=== PATIENT | female | born 1990 | race Two or more races ===

== ENCOUNTER 2024-10-17 17:33 | Emergency (ER) | payer BC, OTHER ==
[~2024-10-17] VITALS: Ht 167.6 cm; Wt 93.0 kg
[2024-10-17 18:17] LABS: Hematocrit 41.6 % (36.0-46.0); Hemoglobin 14.2 g/dL (12.2-16.2); Mean Corpuscular Hemoglobin 32.8 pg (28.0-32.0); Mean Corpuscular Volume 96.4 fL (80.0-100.0); Nucleated Red Blood Cells % 0.0 %
[2024-10-17 18:29] LABS: Alanine Aminotransferase 12 U/L (7-40); Albumin 4.4 g/dL (3.2-4.8); Alkaline Phosphatase 74 U/L (46-116); Anion Gap 10 (5-15); BUN/Creatinine Ratio 14.0 (10.0-20.0); Calcium 8.9 mg/dL (8.7-10.4); Carbon Dioxide 24 mmol/L (20-31); Potassium 4.0 mmol/L (3.5-5.1); Sodium 141 mmol/L (136-145); Total Protein 7.0 g/dL (5.7-8.2)
[2024-10-17 18:30] LABS: Bilirubin, Total 0.2 mg/dL (0.2-1.0); Blood Urea Nitrogen 8 mg/dL (9-23); Chloride 107 mmol/L (98-107); Glucose 107 mg/dL (74-106)
--- NOTE | 2024-10-17 18:35 | DVH ---
CLINICAL HISTORY: vag bleed, 12 wks TECHNIQUE: Ultrasound examination of the female pelvis was performed. COMPARISON: US OB LIMITED on DOS: 09/20/22, US OB BIOPHYSICAL PROFILE W/O N-STR on DOS: 09/20/22, U S OB BIOPHYSICAL PROFILE W/O N-STR on DOS: 09/06/22, US OB BIOPHYSICAL PROFILE W/O N-STR o n DOS: 09/04/22, US OB LIMITED on DOS: 09/04/22 FINDINGS: The uterus measures 14.0 X 9.8 X 5.6 CM. The myometrial echotexture is homogenous. No focal myometri al abnormality is seen. There is a single live intrauterine with a chromium length of 3.9 cm, which correlates to g estational age of 10 weeks 6 days. The heart rate is 172 beats per minute. There is a 3.1 cm soares bchorionic bleed. The ovaries are not seen. There is no free fluid. IMPRESSION: Single live intrauterine dated at 10 weeks 6 days by current ultrasound biometry. 3.1 cm subchorionic bleed.
--- NOTE | 2024-10-17 19:06 | ED.PDOC ---
PASTE UP ARTIST HPI Comments 34 year old female presents to the ED with a chief complaint of vaginal bleeding onset today. Patient states she is about 12 weeks . Woke up this morning experiencing bright red, vaginal bleeding, soaked up about 2 pads. She is also experiencing cramping sensation. Denies any PMHx as well as vaginal discharge, dysuria, nausea, vomiting, diarrhea, headache, dizziness, fever, chills. No other symptoms or modifying factors present at this time. Chief Complaint: Vaginal Bleed Time Seen by MD: 18:50 Reviewed Notes: Medications, Allergies Allergies: Coded Allergies: NO KNOWN ALLERGIES (Unverified , 10/17/24) Information Source: Patient Mode of Arrival: Ambulatory Timing: Hours Prehospital treatment: None Severity: Moderate Vaginal Discharge: None Bleeding Quality: Bright Red Vaginal Mass: None Onset Of Mass/Bleeding: Spontaneous Sexual Activity: Last Consensual [place]: Unknown Control: None History of: Current Symptoms of Possible : Missed Period Associated Signs and Symptoms: Vaginal Bleeding, Cramping Past Medical History PAST MEDICAL HISTORY: Denies Surgical History: Denies all surgeries ARMAMENT INSTALLER History: 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 History Family History Family History: Reviewed,noncontributory to illness, No family hx of Cancer, No family hx of DM, No family hx of Heart nga, No family hx of HTN, No family hx ofKidney nga, No family hx of Liver nga, No family hx of Lung nga, No family hx of Stroke Social History Smoker: Non-Smoker Alcohol: Denies ETOH Use Drugs: Denies Drug Use Lives In: Home Constitutional: denies: chills, diaphoresis, fatigue, fever, malaise, sweats, weakness, others EENTM: denies: blurred vision, double vision, ear bleeding, ear discharge, ear drainage, ear pain, ear ringing, eye pain, eye redness, hearing loss, mouth pain, mouth swelling, nasal discharge, nose bleeding, nose congestion, nose pain, photophobia, tearing, throat pain, throat swelling, voice changes, others Respiratory: denies: cough, hemoptysis, orthopnea, SOB at rest, shortness of breath, SOB with excertion, stridor, wheezing, others Cardiovascular: denies: chest pain, dizzy spells, diaphoresis, Dyspnea on exertion, edema, irregular heart beat, left arm pain, lightheadedness, palpitations, PND, syncope, others Gastrointestinal: reports: abdominal pain; denies: abdomen distended, blood streaked bowels, constipated, diarrhea, dysphagia, difficulty swallowing, hematemesis, melena, nausea, poor appetite, poor fluid intake, rectal bleeding, rectal pain, vomiting, others Genitourinary: reports: abnormal vagina bleeding, vagina discharge; denies: burning, dyspareunia, dysuria, flank pain, frequency, hematuria, incontinence, pain, , urgency, others Neurological: denies: dizziness, fainting, headache, left sided numbness, left sided weakness, numbness, paresthesia, pre-existing deficit, right sided numbness, right sided weakness, seizure, speech problems, tingling, tremors, weakness, others Musculoskeletal: denies: back pain, gout, joint pain, joint swelling, muscle pain, muscle stiffness, neck pain, others Integumetry: denies: bruises, change in color, change in hair/nails, dryness, laceration, lesions, lumps, rash, wounds, others Allergic/Immunocompromised: denies: Difficulty Healing, Frequent Infections, Hives, Itching, others Hematologic/Lymphatic: denies: anemia, blood clots, easy bleeding, easy bruising, swollen glands, others Endocrine: denies: excessive hunger, excessive sweating, excessive thirst, excessive urination, flushing, intolerance to cold, intolerance to heat, unexplained weight gain, unexplained weight loss, others Psychiatric: denies: anxiety, bipolar disorder, depression, hopeless, panic disorder, schizophrenia, sleepless, suicidal, others All Other Systems: Reviewed and Negative Physical Exam General Appearance: Normal HEENT: Normal ENT Inspection, Pharynx Normal, TMs Normal Neck: Full Range of Motion, Non-Tender, Normal, Normal Inspection Respiratory: Chest Non-Tender, Lungs Clear, No Accessory Muscle Use, No Respiratory Distress, Normal Breath Sounds Cardiovascular: No Edema, No JVD, No Murmur, No Gallop, Normal Peripheral Pulses, Regular Rate/Rhythm Breast Exam: Deferred Gastrointestinal: No Organomegaly, Non Tender, No Pulsatile Mass, Normal Bowel Sounds, Soft Genitalia: Deferred Pelvic: Deferred Rectal: Deferred Extremities: No calf tenderness, Normal capillary refill, Normal inspection, Normal range of motion, Non-tender, No pedal edema Musculoskeletal : Apperance: Normal Neurologic: Alert, service superintendent II-XII nml as Tested, No Motor Deficits, Normal Affect, Normal Mood, No Sensory Deficits Cerebellar Function: Normal Reflexes: Normal Skin: Dry, Normal Color, Warm Lymphatic: No Adenopathy Was a procedure done? Was a procedure done?: No X-Ray, Labs, Meds, VS Vital Signs Date Time Temp Pulse Resp B/P (MAP) Pulse Ox O2 Delivery O2 Flow Rate FiO2 10/17/24 19:16 76 20 98 Room Air 10/17/24 19:16 98.0 76 20 126/74 (91) 98 98.0 10/17/24 17:36 98.1 88 18 138/77 100 98.1 Lab Test 10/17/24 18:00 Range/Units White Blood Count 6.8 4.4-10.8 10^3/uL Red Blood Count 4.31 4.0-5.20 10^6/uL Hemoglobin 14.2 12.2-16.2 g/dL Hematocrit 41.6 36.0-46.0 % Mean Corpuscular Volume 96.4 80.0-100.0 fL Mean Corpuscular Hemoglobin 32.8 H 28.0-32.0 pg Mean Corpuscular Hemoglobin Concent 34.1 32.0-36.0 g/dL Red Cell Distribution Width 12.8 11.8-14.3 % Platelet Count 288 140-450 10^3/uL Mean Platelet Volume 8.1 6.9-10.8 fL Neutrophils (%) (Auto) 66.8 37.0-80.0 % Lymphocytes (%) (Auto) 26.1 10.0-50.0 % Monocytes (%) (Auto) 6.2 0.0-12.0 % Eosinophils (%) (Auto) 0.6 0.0-7.0 % Basophils (%) (Auto) 0.3 0.0-2.0 % Neutrophils # (Auto) 4.5 1.6-8.6 10 ^3/uL Lymphocytes # (Auto) 1.8 0.4-5.4 10 ^3/uL Monocytes # (Auto) 0.4 0-1.3 10 ^3/uL Eosinophils # (Auto) 0 0-0.8 10 ^3/uL Basophils # (Auto) 0 0-0.2 10 ^3/uL Nucleated Red Blood Cells 0.0 % Sodium Level 141 136-145 mmol/L Potassium Level 4.0 3.5-5.1 mmol/L Chloride Level 107 98-107 mmol/L Carbon Dioxide Level 24 20-31 mmol/L Anion Gap 10 5-15 Blood Urea Nitrogen 8 L 9-23 mg/dL Creatinine 0.57 0.550-1.02 mg/dL Glomerular Filtration Rate Calc 124 >90 mL/min BUN/Creatinine Ratio 14.0 10.0-20.0 Serum Glucose 107 H 74-106 mg/dL Calcium Level 8.9 8.7-10.4 mg/dL Total Bilirubin 0.2 0.2-1.0 mg/dL Aspartate Amino Transferase (AST) 14 13-40 U/L Alanine Aminotransferase (ALT) 12 7-40 U/L Alkaline Phosphatase 74 46-116 U/L Total Protein 7.0 5.7-8.2 g/dL Albumin 4.4 3.2-4.8 g/dL Beta HCG, Quantitative 97277.3 H 1.5-4.2 mIU/mL [place] [address] Ph: [phone] DIAGNOSTIC IMAGING Diagnostic Imaging Report : [id number] Signed PATIENT: SAVAGE GODDARD ACCT: [id number] UNIT: [id number] : 1990 LOC: ER ROOM / BED: / AGE / SEX: 34 / F ADM STATUS: REG ER SERVICE [id number] ORDERING PHYSICIAN: NABILA VICENTE MD PROCEDURE(s): OB4US - OB ULTRASOUND COMP LESS 14WKS REASON: vag bleed, 12 wks ORDER NUMBER(s): [id number], ACCESSION NUMBER(s): [id number] CLINICAL HISTORY: vag bleed, 12 wks TECHNIQUE: Ultrasound examination of the female pelvis was performed. COMPARISON: US OB LIMITED on DOS: 09/20/22, US OB BIOPHYSICAL PROFILE W/O N- STR on DOS: 09/20/22, US OB BIOPHYSICAL PROFILE W/O N-STR on DOS: 09/06/22, US OB BIOPHYSICAL PROFILE W/O N-STR on DOS: 09/04/22, US OB LIMITED on DOS: 09/04/22 FINDINGS: The uterus measures 14.0 X 9.8 X 5.6 CM. The myometrial echotexture is homogenous. No focal myometrial abnormality is seen. There is a single live intrauterine with a chromium length of 3.9 cm, which correlates to gestational age of 10 weeks 6 days. The heart rate is 172 beats per minute. There is a 3.1 cm subchorionic bleed. The ovaries are not seen. There is no free fluid. IMPRESSION: Single live intrauterine dated at 10 weeks 6 days by current ultrasound biometry. 3.1 cm subchorionic bleed. ATED BY: ROSALES WHYTE MD DICTATED DATE/TIME: 10/17/241831 SIGNED BY: ROSALES WHYTE MD SIGNED DATE/TIME: 10/17/241831 CC: Time of 1ST Reevaluation: 19:20 Reevaluation 1ST: Unchanged Patient Education/Counseling: Diagnosis, Treatment, Prognosis Family Education/Counseling: No Family Present Departure 1 Departure Time of Disposition: 21:00 Impression: Primary Impression: 11 weeks gestation of Additional Impression: Threatened miscarriage in early Disposition: 01 HOME / SELF CARE / HOMELESS Condition: Stable Additional Instructions: Your ultrasound today showed: IMPRESSION: Single live intrauterine dated at 10 weeks 6 days by current ultrasound biometry. 3.1 cm subchorionic bleed. 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 Electronically submitted by Radha Jolley ([email or web address]). NABILA VICENTE MD Oct 17, 2024 19:06
[2024-10-17 19:16] VITALS: BP 126/74; PULSE 76; RESP 20; TEMP 98; O2SAT 98
== END 2024-10-17 19:19 | disposition home or self-care (01) ==
LOC: ER 17:33
DX: O20.0 Threatened abortion (principal); Z3A.12 12 weeks gestation of pregnancy
CPT/HCPCS: 36415; 76801; 80053; 84702; 85025; 86901